=== PATIENT | female | born 1940 | race Caucasian/White ===

== ENCOUNTER 2018-04-22 13:57 | Outpatient (CLI) | payer MEDICARE ==
[~2018-04-22 13:57] MED LIST: Gadobenate Dimeglumine 529 MG/1 ML (20ML VIAL) ONE; Iopamidol 370 76% 100 ML VIAL ONE
--- NOTE | 2018-04-22 15:51 | CT ---
CT CHEST WITH IV CONTRAST CT ABDOMEN AND PELVIS WITH IV CONTRAST: DATE: 04/22/2018. HISTORY: Secondary malignant neoplasm of bone. The patient had abnormal bone scan and complains of back pain. COMPARISON: None available. FINDINGS: CT THORAX: There is a punctate pulmonary nodule within the right middle lobe which is nonspecific. No additiona l discrete pulmonary nodule or mass is seen and there is no pleural effusion identified. Vascular calcifications are seen in the coronary arteries and involving the thoracic aorta. There is no evidence of lymphadenopathy. There are postsurgical changes of the lower cervical and upper thor acic spine related to anterior as well as posterior cervical fusion. Degenerative changes are seen in the spine. No lytic or sclerotic osseous lesion is appreciated. CT ABDOMEN AND PELVIS: The left kidney is slightly atrophic in appearance compared to the right kidney with peripheral areas of scarring and lobulation. The right kidney has a normal CT appearance. There is a calcified granuloma in the right hepatic lobe. There are post-cholecystectomy changes pre sent with mild intra- and extrahepatic biliary ductal dilatation. The liver is otherwise normal in a ppearance. The spleen, pancreas, bilateral adrenal glands, and kidneys demonstrate a normal CT appearance. Opaci fied loops of small bowel are normal in caliber. A few scattered colonic diverticula are seen. The uterus is not visualized, likely related to prior hysterectomy. There is no free fluid, fluid collection, or lymphadenopathy seen in the abdomen or pelvis. Multilevel degenerative changes are seen throughout the spine as well as postsurgical changes present related to laminectomy defect with fusion at the lumbosacral junction. There is evidence of osteopenia. No suspicious lytic or sclerotic osseous lesions are appreciated. Injection granuloma are seen in the gluteal regions bilaterally. IMPRESSION: 1. No acute findings are seen in the chest, abdomen, or pelvis. 2. No Ct findings to suggest metastatic disease. 3. Multilevel degenerative changes in the spine with heterogeneity of the thoracic and lumbar verte bral bodies which is most likely related to bony demineralization and osteopenia as opposed to mottle d appearance due to multiple myeloma or metastatic disease. 4. Additional incidental findings are as described above. POS: SHAWNA
--- NOTE | 2018-04-22 17:09 | MRI ---
PRE AND POSTCONTRAST ENHANCED MRI IMAGES THORACIC SPINE 04/22/18 HISTORY: Secondary malignancy neoplasm of bone, localized back pain. Multiplanar and multisequence pre and postcontrast enhanced MRI images of the thoracic spine obtained . Images demonstrate extensive cervical and T1 cervical spine fusion. There is an interosseous hemangioma in the T3 vertebral body. There is some end plate edema and enhancement involving the inferior end plate of the T8 vertebral aleksandr dy likely disc degenerative change. There is an area of abnormal signal with enhancement in the inferior end plate of L1 extending into t he right L1-2 lumbar spinal canal with enhancement. Please also see accompanying dictation of the lum bar spine. I cannot exclude possibility of lumbar metastatic disease. There is marked right T8-9 neur al foraminal narrowing compressing the exiting right T8 nerve root. There is also some moderate to se briseida left T7-8 neural foraminal narrowing due to facet hypertrophy as well as disc encroachment into the left T7-8 neural foramen. IMPRESSION: Upper lumbar abnormal enhancement. Please see accompanying MRI dictation of the lumbar spine. POS: SHAWNA
--- NOTE | 2018-04-22 17:36 | MRI ---
MRI LUMBAR SPINE WITH AND WITHOUT CONTRAST: 04/22/18 HISTORY: Secondary malignant neoplasm of the bone. Localized back pain. Four previous back surgeries. COMPARISON: None. TECHNIQUE: MRI Of the lumbar spine is performed without intravenous gadolinium administration. Multisequential, multiplanar imaging is performed. FINDINGS: There is T1 marrow signal hypointensity with associated T2 and STIR hyperintensity involving L1 and L 2 compatible with type II Modic change. There is 4 mm of anterolisthesis of L3 upon L4 and 7 mm of an terolisthesis of L4 upon L5. There is no abnormal enhancement of the vertebral bodies. No abnormal enhancement within the thecal s ac including the cauda equina and conus medullaris. The conus medullaris terminates at the mid L1 level. T12-L1: Desiccation with moderate loss of disc space height. There is ligamentum flavum thickening an d facet hypertrophy. Moderate central canal stenosis. Moderate bilateral foraminal narrowing. L1-L2: Desiccation with moderate loss of disc space height. There are posterior laminectomy defects. Broad based disc bulge, facet hypertrophy results in moderate central canal stenosis. The central sup erior disc extrusion. Contrast images demonstrate enhancing scar tissue at the laminectomy defect sit e. There is a T2 hyperintense lesion with associated enhancement that is posterior and slightly to th e left of the thecal sac measuring 0.6 x 0.7 cm. Based on the images provided, the enhancement appear s to be predominantly peripheral suggesting a synovial cyst. There is severe right and left foraminal narrowing. L2-L3: Desiccation with severe loss of disc space height. Broad based disc bulge, ligamentum flavum t hickening and facet hypertrophy result in moderate central canal stenosis. Severe right and moderate to severe left foraminal narrowing. L3-L4: Desiccation with mild loss of disc space height. Generalized disc bulge, ligamentum flavum thi ckening, and facet hypertrophy result in moderate central canal stenosis. Laminectomy defect is sugge sted. There is bilateral facet hypertrophy. There is moderate right and mild to moderate left foramin al narrowing. L4-L5: Severe loss of disc space height. There are posterior laminectomy defects. There is a broad ba sed disc bulge that results in moderate central canal stenosis. There is enhancing scar tissue at the laminectomy defect site. There appears to be enhancing scar tissue in the right subarticular zone, p artially encompassing the traversing right L5 nerve root. Moderate right and severe left foraminal na rrowing. L5-S1: There is mild central canal stenosis. Moderate bilateral foraminal narrowing. IMPRESSION: 1. Postsurgical changes in the lumbar spine as above. There is significant central stenosis at L 4-L5, L3-L4, L2-3, and at L1-L2. 2. Synovial cyst causing mass effect upon the posterior aspect of the thecal sac at L1-L2. 3. Significant bilateral foraminal narrowing at L1-L2, left neural foramen at L4-L5, bilateral n eural foramina at L5-S1. POS: SHAWNA
== END 2018-04-22 13:58 | disposition home or self-care (01) ==
LOC: CT 13:57
PROVIDERS: ATTEND Internal Medicine Hematology & Oncology
DX: C79.51 Secondary malignant neoplasm of bone (principal); M47.894 Other spondylosis, thoracic region; M47.896 Other spondylosis, lumbar region; M99.83 Other biomechanical lesions of lumbar region; M48.061 Spinal stenosis, lumbar region without neurogenic claudication; M71.38 Other bursal cyst, other site; Z98.890 Other specified postprocedural states
CPT/HCPCS: 71260; 72157; 72158; 74177; A9579

== ENCOUNTER 2019-04-13 16:51 | Observation (INO) | payer MEDICARE ==
[2019-04-13 17:20] LABS: #Lymphocytes 1.1 thou/uL (1.20-3.40); #Monocytes 0.4 thou/uL (0.11-0.59); #Neutrophils 2.6 thou/uL (1.40-6.50); %Basophils 0.6 % (0.0-1.0); %Eosinophils 0.4 % (0.0-10.0); %Lymphocytes 27.2 % (21.0-51.0); %Monocytes 8.4 % (0.0-10.0); %Neutrophils 63.4 % (42.0-75.0); Hemoglobin 13.1 g/dL (12.0-16.0); Mean Corpuscular Hemoglobin 31.9 pg (27.0-31.0); Mean Corpuscular Volume 91.1 fL (78.0-98.0); Mean Platelet Volume 6.1 fL (7.4-10.4); Platelet Count 138 thou/uL (130-400); RBC Distribution Width 11.1 % (11.5-14.5); Red Blood Cell (RBC) Count 4.11 mill/uL (4.20-5.40); White Blood Cell (WBC) Count 4.2 thou/uL (4.8-10.8)
--- NOTE | 2019-04-13 17:35 | RAD ---
XR Chest 1 View Portable History: Chest pain Comparison: None. Findings: Lungs are clear. No pneumothorax or effusion. Cardiac silhouette and mediastinal contours a re within normal limits. No acute osseous abnormality. Advanced degenerative change left glenohumeral joint. Impression: No acute intrathoracic abnormality.
[2019-04-13 17:36] LABS: ALT (SGPT) 19 U/L (8-55); AST (SGOT) 36 U/L (5-34); Albumin 4.7 g/dL (3.4-4.8); Alkaline Phosphatase 60 U/L (40-110); Anion Gap 14 mmol/L (10-20); BUN (Urea Nitrogen) 12 mg/dL (9.8-20.1); Bilirubin, Total 0.5 mg/dL (0.2-1.2); CK (CPK) 426 U/L (29-168); Calc. Creatinine Clearance 0 mL/min (70-130); Calcium 9.7 mg/dL (7.8-10.44); Carbon Dioxide 27 mmol/L (23-31); Chloride 96 mmol/L (98-107); Estimated GFR-MDRD 52; Glucose 131 mg/dL (83-110); Lipase 40 U/L (8-78); Potassium 4.1 mmol/L (3.5-5.1); Protein, Total 7.7 g/dL (6.0-8.3); Sodium 133 mmol/L (136-145)
--- NOTE | 2019-04-13 17:41 | CT ---
CT Brain WO Con History: Altered mental status Comparison: CT brain 2017 Findings: No acute hemorrhage or infarct. No midline shift or mass effect. 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 Calvarium is intact. Paranasal sinuses and mastoids are clear.. The be implants of the temporal carrol bular joints bilaterally. Impression: Chronic findings. No acute intracranial abnormality.
[2019-04-13] MEDS ORDERED: Aspirin Chewable 81 MG TAB ONE (18:25)
[2019-04-13] MEDS ORDERED: HYDROcodone/Acetaminophen 10/325 mg Tablet ONE (20:07)
[2019-04-13 23:17] VITALS: BMI 22.4
[2019-04-14] MEDS ORDERED: diphenhydrAMINE 25 MG CAP PO PRN (00:31)
[2019-04-14] MEDS ORDERED: ALPRAZolam 0.5 MG TAB PO PRN (00:31)
[2019-04-14] MEDS ORDERED: tiZANidine HCl 4 MG TAB PO PRN (00:31)
--- NOTE | 2019-04-14 00:45 | PDOC.EVN ---
Event Note - Event Note Event Note: [id number] HP
--- NOTE | 2019-04-14 01:48 | HP ---
CHIEF COMPLAINT: Numbness and ? weakness of the right lower extremity. HISTORY OF PRESENT ILLNESS: Ms. Limon is a 78-year-old female with past medical history of hypertension, hyperlipidemia, thyroid disease, chronic back pain, and spinal surgery, presents to the emergency room with numbness and weakness of the right leg, she said that she usually ambulates at baseline, but she feels funny today and she cannot feel her right leg when she pinches her leg. Workup in the emergency room including CT of the brain, no acute findings. The patient is being admitted to the hospital for further management. PAST MEDICAL HISTORY: 1. Hyperlipidemia. 2. Hypertension. 3. Thyroid disease. 4. Diverticulitis. 5. Gastrointestinal disease. 6. Chronic back pain. PAST SURGICAL HISTORY: 1. Appendectomy. 2. Cholecystectomy. 3. Orthopedic surgery, back surgery/spine surgery, cervical. SOCIAL HISTORY: She drinks socially. No history of smoking. ALLERGIES: ALLERGIC TO ADHESIVES, MORPHINE, PENICILLIN. FAMILY HISTORY: Reviewed and noncontributory. HOME MEDICATIONS: Please see home medication reconciliation form for updated medications. REVIEW OF SYSTEMS: Review of 14 systems negative except what is mentioned in the history of present illness. PHYSICAL EXAMINATION: GENERAL: The patient is awake, alert, no acute distress. VITAL SIGNS: Blood pressure is 160/74, pulse is 67, respiratory rate 16, temperature 98.4. HEAD AND NECK: Normocephalic, atraumatic. NECK: Supple. No JVD. CHEST: Clear, bilateral air entry. HEART: S1, S2 regular. ABDOMEN: Soft, nontender. Bowel sounds present. NEUROLOGIC: Awake, alert, oriented x3. Subjective paresthesia to the left lower extremity. Normal range of motion. Normal strength. Speech is normal. Cranial nerves intact. SKIN: Unable to assess. IMAGING: EKG shows sinus rhythm with first-degree AV block. CT of the brain, no acute findings. ASSESSMENT AND PLAN: 1. Right lower extremity for a previous weakness? 2. Chronic back pain. 3. Hyperlipidemia. 4. Hypertension. 5. Diabetes, type 2. PLAN: 1. Admit. 2. Neuro checks. 3. Reassess in a.m. If the patient continues to have symptoms, may need further imaging studies including CT of the spine. As per the patient, she had metal in her body and she cannot get an MRI. 4. Consider PT/OT eval and treat, after the patient being reassessed in the morning by the daytime physician. 5. Consider Neurosurgery consultation, if the patient's symptoms persist. 6. Reconcile home medications. 7. DVT prophylaxis, early ambulation. 8. Expected length of stay is 1 midnight, if patient is stable and further workup negative. Job ID: [id number]
[2019-04-14] MEDS ORDERED: Levothyroxine Sodium 75 MCG TAB PO SCH (06:00)
[2019-04-14] MEDS: HYDROcodone/Acetaminophen 10/325 mg Tablet PO PRN ×2 (07:28→13:38)
[2019-04-14] MEDS ORDERED: metFORMIN 500 MG TAB PO SCH (08:00)
[2019-04-14] MEDS ORDERED: Rosuvastatin 10 MG TAB PO SCH (09:00)
[2019-04-14] MEDS ORDERED: Polyethylene Glycol 3350 17 GM Packet PO SCH (09:00)
[2019-04-14] MEDS ORDERED: Lisinopril 10 MG TAB PO SCH (09:00)
[2019-04-14] MEDS ORDERED: FLU VACC TS2019-20(65YR UP)/PF 180 MCG/0.5 ML SYRINGE IM ONE (09:00)
[2019-04-14] MEDS ORDERED: Dextrose 50% Abboject 50 ML SYRINGE SLOW IVP PRN (09:13)
[2019-04-14] MEDS ORDERED: Dextrose 5% in Water 1,000 ML IV PRN (09:13)
[2019-04-14] MEDS ORDERED: Insulin Regular 300 UNITS/3 ML VIAL SC PRN ×2 (09:13)
--- NOTE | 2019-04-14 10:39 | MRI ---
MRI BRAIN NONCONTRAST: DATE: 04/14/2019 HISTORY: 78-year-old female with CVA FINDINGS: Magnetic susceptibility blowout artifact arising from ferromagnetic implants at the bilateral TMJs, o bscuring portions of the bilateral temporal lobes. There is no obstructive hydrocephalus. There is no midline shift or any other evidence of mass effect. There is no extra-axial fluid collection. Ther e are mild chronic ischemic white matter changes due to microvascular atherosclerosis. There is a small old lacunar infarction in the upper portion of the right basal ganglia extending into the adjac ent right chowdary radiata. On the previous MRI of 12/02/2016, there was a tiny old lacunar infarction in the right basal ganglia, but the current one is slightly larger, abuts the anterior surface of the older one, and has greater superior extent. There is otherwise no major intra-axial signal abnormality, recent hemorrhage, or restricted diffusion. IMPRESSION: 1) mild chronic ischemic white matter changes. 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 3) status post bilateral temporomandibular joint arthroplasty. 4) otherwise negative
[2019-04-14 11:52] LABS: Anion Gap 10 mmol/L (10-20); BUN (Urea Nitrogen) 11 mg/dL (9.8-20.1); CK (CPK) 261 U/L (29-168); Calc. Creatinine Clearance 42 mL/min (70-130); Calcium 9.4 mg/dL (7.8-10.44); Carbon Dioxide 26 mmol/L (23-31); Chloride 94 mmol/L (98-107); Estimated GFR-MDRD 54; Glucose 166 mg/dL (83-110); Potassium 4.3 mmol/L (3.5-5.1); Sodium 126 mmol/L (136-145)
[2019-04-14 15:35] LABS: Anion Gap 12 mmol/L (10-20); BUN (Urea Nitrogen) 12 mg/dL (9.8-20.1); Calc. Creatinine Clearance 36 mL/min (70-130); Calcium 9.4 mg/dL (7.8-10.44); Carbon Dioxide 26 mmol/L (23-31); Chloride 94 mmol/L (98-107); Estimated GFR-MDRD 44; Glucose 114 mg/dL (83-110); Potassium 4.6 mmol/L (3.5-5.1); Sodium 127 mmol/L (136-145)
[2019-04-14 16:02] VITALS: BP 185/85; TEMP 98.2
[2019-04-14] MEDS ORDERED: Enoxaparin Sodium 40 MG/0.4 ML SYRINGE SC SCH (21:00)
--- NOTE | 2019-04-14 23:43 | DIS ---
DATE OF ADMISSION: 04/13/2019 DATE OF DISCHARGE: 04/14/2019 DISCHARGE DISPOSITION: Home. FOLLOWUP: 1. Follow up with primary care physician, Dr. Parker in 1 week. 2. Follow up with Nephrology as outpatient. A repeat electrolyte check after 2 to 3 days is recommended. Primary care physician advised to follow. DISCHARGE INSTRUCTIONS: A 1200 mL fluid restriction was emphasized. CODE STATUS: Full code. Patient makes her own decision with the help of her family. DISCHARGE MEDICATIONS: Aspirin 81 mg daily. All other home medications were left unchanged. DIAGNOSTIC TESTS: MRI of the brain was negative for acute CVA. It showed mild chronic ischemic white matter changes with two small old lacunar infarctions of the right corpus striatum. Chest x-ray was negative for infiltrate. BRIEF HOSPITAL COURSE: Patient is a 78-year-old female with hypertension and hyperlipidemia, presented to the hospital with numbness and questionable weakness in the right lower extremity. Please refer to the history and physical by Dr. Staton for further details. The patient was admitted to the hospital with a diagnosis of suspected transient ischemic attack versus acute CVA. She underwent an MRI that was negative for acute CVA. She has been started on low-dose aspirin. Patient had a sodium of 123 on admission. Repeat sodium this morning was 126. Four hours later, the sodium was 127. Urine studies showed urine osmolality of 431 with urine sodium of 73. 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 Patient was advised to restrict fluid intake to 1200 mL a day. She was advised to get a repeat electrolyte check in 2 days. Echocardiogram could not be done during this hospital stay. Patient requested to be discharged. She will benefit from an echocardiogram as outpatient. FINAL DIAGNOSIS: 1. Suspected transient ischemic attack, causing right lower extremity weakness. Other possibility causing weakness could be lumbar degenerative joint disease. 2. 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 3. Hypertension. 4. Chronic low back pain. 5. Hyperlipidemia. 6. Hypothyroidism. 7. Diabetes mellitus, type 2. 8. Chronic kidney disease, stage 3. 9. Elevated CK of 426 on admission. Repeat CK was 261. 10. Diagnostic tests. Vitamin B12 is 511. 11. Folic acid 14.2. 12. TSH was normal. PLAN: Plan of care was discussed with the patient in detail. She stated understanding. Job ID: [id number]
[2019-04-15] MEDS ORDERED: Aspirin 325 mg Enteric Coated Tablet PO SCH (09:00)
== END 2019-04-14 17:45 | disposition home or self-care (01) ==
LOC: SCSER 16:51 → 2SE 22:25
PROVIDERS: ADMIT Internal Medicine; ATTEND Internal Medicine
DX: R20.0 Anesthesia of skin (principal); I12.9 Hypertensive chronic kidney disease with stage 1 through stage 4 chronic kidney disease, or unspecified chronic kidney disease; E11.22 Type 2 diabetes mellitus with diabetic chronic kidney disease; N18.3 Chronic kidney disease, stage 3 (moderate); E03.9 Hypothyroidism, unspecified; E78.5 Hyperlipidemia, unspecified; E87.1 Hypo-osmolality and hyponatremia; G89.29 Other chronic pain; M54.5 Low back pain; Z79.84 Long term (current) use of oral hypoglycemic drugs; Z79.899 Other long term (current) drug therapy; Z88.0 Allergy status to penicillin; Z88.5 Allergy status to narcotic agent; Z91.048 Other nonmedicinal substance allergy status
CPT/HCPCS: 36415; 36416; 70450; 70551; 71045; 80048; 80053; 82550; 82607; 82746; 83690; 83930; 83935; 84300; 84443; 84484; 85025; 93005; G0378

== ENCOUNTER 2019-05-22 13:55 | Outpatient (CLI) | payer MEDICARE ==
--- NOTE | 2019-05-22 15:19 | MRI ---
MRI cervical spine noncontrast: DATE: 05/22/2019 HISTORY: 78-year-old female with cervical spinal stenosis and extremely cervicalgia. COMPARISON: 10/30/2013 FINDINGS: Again demonstrated are anterior metallic plate from C4 through C7, attached to bone by anterior screw s at C4, C5, and C7. Partial corpectomy of C6 vertebral body partially replaced by vertical fibular strut. (for detailed evaluation of the metallic hardware, noncontrast CT would be recommended). In addition to this pre-existing hardware, there has been interval placement of bilateral posterior e lement screws with vertical interlocking rods at C4, C5, C6, C7, and T1. Furthermore, there has been interval wide, decompressive laminectomy from C4-5 through C6-7, relieving the previously demons trated severe central spinal canal stenosis. Cervical spinal cord is normal in size and signal. C1-2: Degenerative pseudopannus posterior to odontoid process encroaches upon craniocervical junction , causing moderate central spinal canal stenosis. C2-3: No central or neural foraminal stenosis. C3-4: No central stenosis or high-grade neural foraminal stenosis. C4-5: No high-grade central stenosis or neural foraminal stenosis. C5-6: Generous caliber spinal canal. No neural foraminal stenosis. C6-7: Generous caliber spinal canal. No neural foraminal stenosis. C7-T1: No central stenosis. Mild bilateral neural foraminal stenosis. IMPRESSION: 1. No central spinal canal stenosis, high-grade neural foraminal stenosis, or cord impingement, at an y level. 2. Status post anterior cervical discectomy, corpectomy, and fusion, at C4-5-6-7. 3. Posterior element fusion hardware at C4-5-6-7-T1. 4. Status post decompressive laminectomy at C4-5, C5-6, and C6-7.
--- NOTE | 2019-05-22 16:27 | RAD ---
THREE VIEWS CERVICAL SPINE: Indication: Radiculopathy to the cervical region. Comparison: Prior exam, 06-07-15. FINDINGS: The 360 degrees fusion spanning C4 through T1 is stable. The instrumentation involving the mandible a ppears similar appearing. Spinal alignment is unchanged. Mild disc degenerative disease at C2-3 and C 3-4 is similar appearing. Facet osteoarthritic change is similar appearing. No definite abnormal sharp slational motion is evident. Vertebral soft tissues are within normal limits. IMPRESSION: Stable post-operative cervical spine with no abnormal translation and stable degenerative spondylolis thesis. POS: C
== END 2019-05-22 13:56 | disposition home or self-care (01) ==
LOC: SCSMRI 13:55
PROVIDERS: ATTEND Nurse Practitioner Family
DX: M54.12 Radiculopathy, cervical region (principal); M43.12 Spondylolisthesis, cervical region; Z98.1 Arthrodesis status
CPT/HCPCS: 72040; 72141

== ENCOUNTER 2020-09-06 10:05 | Outpatient (CLI) | payer MEDICARE | END 2020-09-06 10:06 | disposition home or self-care (01) | LOC: SCSRAD 10:05 | PROVIDERS: ATTEND Surgery | DX: S32.009A Unspecified fracture of unspecified lumbar vertebra, initial encounter for closed fracture (principal); M47.814 Spondylosis without myelopathy or radiculopathy, thoracic region | CPT/HCPCS: 72100 ==

== ENCOUNTER 2020-10-03 08:51 | Outpatient (CLI) | payer MEDICARE | END 2020-10-03 08:52 | disposition home or self-care (01) | LOC: SCSLAB 08:51 → SCSRAD 08:52 | PROVIDERS: ATTEND Surgery | DX: S32.009A Unspecified fracture of unspecified lumbar vertebra, initial encounter for closed fracture (principal) | CPT/HCPCS: 72100 ==

== ENCOUNTER 2020-10-16 08:56 | Outpatient (CLI) | payer MEDICARE | END 2020-10-16 08:57 | disposition home or self-care (01) | LOC: SCSRAD 08:56 | PROVIDERS: ATTEND Surgery | DX: S32.009A Unspecified fracture of unspecified lumbar vertebra, initial encounter for closed fracture (principal); W19.XXXA Unspecified fall, initial encounter | CPT/HCPCS: 72100 ==

== ENCOUNTER 2020-10-25 14:10 | Inpatient (IN) | payer MEDICARE ==
[2020-10-25] MEDS ORDERED: Heparin 1,000 UNITS/ML VIAL ONE (14:40)
[2020-10-25 15:35] LABS: #Lymphocytes 0.8 thou/uL (1.20-3.40); #Monocytes 0.5 thou/uL (0.11-0.59); #Neutrophils 5.5 thou/uL (1.40-6.50); %Eosinophils 0.2 % (0.0-10.0); %Lymphocytes 12.2 % (21.0-51.0); %Monocytes 7.1 % (0.0-10.0); %Neutrophils 80.6 % (42.0-75.0); Hemoglobin 9.2 g/dL (12.0-16.0); Mean Corpuscular HGB CONC 34.6 g/dL (32.0-36.0); Mean Corpuscular Hemoglobin 30.7 pg (27.0-31.0); Mean Corpuscular Volume 88.9 fL (78.0-98.0); Mean Platelet Volume 5.4 fL (7.4-10.4); Platelet Count 276 thou/uL (130-400); RBC Distribution Width 13.4 % (11.5-14.5); Red Blood Cell (RBC) Count 2.98 mill/uL (4.20-5.40); White Blood Cell (WBC) Count 6.8 thou/uL (4.8-10.8)
[2020-10-25 15:59] LABS: ALT (SGPT) Less than 7 U/L (8-55); AST (SGOT) 15 U/L (5-34); Albumin 3.8 g/dL (3.4-4.8); Alkaline Phosphatase 98 U/L (40-110); Anion Gap 14 mmol/L (10-20); BUN (Urea Nitrogen) 10 mg/dL (9.8-20.1); Bilirubin, Total 0.5 mg/dL (0.2-1.2); Calc. Creatinine Clearance 0 mL/min (70-130); Calcium 9.7 mg/dL (7.8-10.44); Carbon Dioxide 25 mmol/L (23-31); Chloride 89 mmol/L (98-107); Globulin 3.9 g/dL (2.4-3.5); Glucose 161 mg/dL (83-110); Potassium 4.3 mmol/L (3.5-5.1); Protein, Total 7.7 g/dL (5.8-8.1); Sodium 124 mmol/L (136-145)
[2020-10-25] MEDS ORDERED: Cefepime 2 GM VIAL ONE (16:25)
[2020-10-25] MEDS ORDERED: Vancomycin 1 GM/200 ML BAG ONE (16:26)
[2020-10-25] MEDS ORDERED: Morphine 4 MG/ML VIAL ONE ×2 (16:26→17:20)
[2020-10-25] MEDS ORDERED: Ketorolac Tromethamine 30 MG/ML VIAL ONE (16:26)
[2020-10-25] MEDS ORDERED: Acetaminophen 325 MG TAB PO PRN (17:54)
[2020-10-25] MEDS ORDERED: Ondansetron ODT 4 MG TAB PO PRN (17:54)
[2020-10-25] MEDS ORDERED: Senokot S 8.6-50 MG TAB PO PRN (17:54)
[2020-10-25] MEDS ORDERED: Ondansetron PF 4 MG/2 ML Vial IVP PRN (17:54)
[2020-10-25] MEDS ORDERED: Sodium Chloride 0.9% 1,000 ML IV SCH (18:00)
[2020-10-25] MEDS ORDERED: Dextrose 50% Abboject 50 ML SYRINGE SLOW IVP PRN (18:01)
[2020-10-25] MEDS ORDERED: HumaLOG 300 UNITS/3 ML VIAL SC PRN ×2 (18:01)
[2020-10-25] MEDS ORDERED: Dextrose 5% in Water 1,000 ML IV PRN (18:01)
[2020-10-25 19:51] VITALS: BMI 21.9
[2020-10-25] MEDS: Famotidine/PF 20 mg/2ml Vial SLOW IVP SCH (19:57)
[2020-10-25] MEDS: HYDROcodone/Acetaminophen 10/325 mg Tablet PO SCH (20:18)
[2020-10-25] MEDS: Famotidine 20 MG TAB PO SCH (20:19)
[2020-10-25 22:42] LABS: Anion Gap 11 mmol/L (10-20); BUN (Urea Nitrogen) 9 mg/dL (9.8-20.1); Calc. Creatinine Clearance 45 mL/min (70-130); Carbon Dioxide 28 mmol/L (23-31); Chloride 90 mmol/L (98-107); Glucose 167 mg/dL (83-110); Potassium 4.1 mmol/L (3.5-5.1); Sodium 125 mmol/L (136-145)
[2020-10-26] MEDS: HYDROcodone/Acetaminophen 10/325 mg Tablet PO SCH ×6 (00:29→20:38)
[2020-10-26] MEDS: tiZANidine HCl 4 MG TAB PO PRN ×2 (00:29→18:21)
[2020-10-26 03:30] LABS: SARS-CoV-2 PCR by NAA Not Detected (NotDetected)
[2020-10-26] MEDS: Cefepime 2 GM in Sodium Chloride 0.9% 100 ML IVPB SCH ×2 (05:06→16:52)
[2020-10-26 06:19] LABS: #Monocytes 0.4 thou/uL (0.11-0.59); #Neutrophils 2.7 thou/uL (1.40-6.50); %Basophils 0.3 % (0.0-1.0); %Eosinophils 0.6 % (0.0-10.0); %Lymphocytes 24.5 % (21.0-51.0); %Neutrophils 64.5 % (42.0-75.0); Hemoglobin 8.4 g/dL (12.0-16.0); Mean Corpuscular HGB CONC 32.9 g/dL (32.0-36.0); Mean Corpuscular Hemoglobin 29.5 pg (27.0-31.0); Mean Corpuscular Volume 89.4 fL (78.0-98.0); Mean Platelet Volume 5.1 fL (7.4-10.4); Platelet Count 235 thou/uL (130-400); RBC Distribution Width 13.5 % (11.5-14.5); Red Blood Cell (RBC) Count 2.86 mill/uL (4.20-5.40); White Blood Cell (WBC) Count 4.1 thou/uL (4.8-10.8)
[2020-10-26 06:43] LABS: Iron 38 ug/dL (50-170); Iron Binding Capacity, Total 228 mcg/dL (265-497)
[2020-10-26 06:44] LABS: Anion Gap 13 mmol/L (10-20); BUN (Urea Nitrogen) 10 mg/dL (9.8-20.1); Calc. Creatinine Clearance 45 mL/min (70-130); Calcium 8.9 mg/dL (7.8-10.44); Carbon Dioxide 23 mmol/L (23-31); Chloride 92 mmol/L (98-107); Glucose 113 mg/dL (83-110); Iron 37 ug/dL (50-170); Iron Binding Capacity, Total 229 mcg/dL (265-497); Potassium 4.2 mmol/L (3.5-5.1); Sodium 124 mmol/L (136-145)
[2020-10-26] MEDS: Famotidine 20 MG TAB PO SCH ×2 (07:59→20:38)
[2020-10-26] MEDS: Lisinopril 10 MG TAB PO SCH (07:59)
[2020-10-26] MEDS: Polyethylene Glycol 3350 17 GM Packet PO SCH (08:01)
[2020-10-26] MEDS: Famotidine/PF 20 mg/2ml Vial SLOW IVP SCH ×2 (08:01→20:40)
[2020-10-26 10:53] LABS: Bacteria/HPF None Seen HPF (None Seen); Bilirubin Negative (Negative); Blood, Urine Negative (Negative); Clarity Clear (Clear); Glucose, Urine (Dipstick) Normal (Negative); Ketone, Urine Negative (Negative); Leukocyte Negative Leu/uL (Negative); Nitrite Negative (Negative); Protein, Urine (Dipstick) Negative (Neg-Trace); RBC/HPF 0-3 HPF (0-3); Specific Gravity, Urine 1.007 (1.002-1.036); Squamous Epithelial 0-3 HPF (0-3); Urobilinogen Normal mg/dL (Less than 2); WBC/HPF 0-3 HPF (0-3); pH, Urine 6.5 (5.0-9.0)
[2020-10-26] MEDS: Lidocaine 5% Patch TD SCH (13:11)
[2020-10-26] MEDS ORDERED: hydrALAZINE 20 MG/ML VIAL SLOW IVP PRN (15:45)
[2020-10-26] MEDS: ALPRAZolam 0.5 MG TAB PO PRN ×2 (16:58→23:28)
[2020-10-26] MEDS: Vancomycin HCl 750 MG in Sodium Chloride 0.9% 250 ML 250 ML IVPB SCH (18:12)
[2020-10-27] MEDS: HYDROcodone/Acetaminophen 10/325 mg Tablet PO SCH ×6 (00:42→20:23)
[2020-10-27] MEDS: Transdermal Patch Removal TOP SCH (00:50)
[2020-10-27] MEDS: Levothyroxine Sodium 75 MCG TAB PO SCH (04:29)
[2020-10-27] MEDS: Cefepime 2 GM in Sodium Chloride 0.9% 100 ML IVPB SCH ×2 (04:33→16:55)
[2020-10-27 06:04] LABS: #Monocytes 0.3 thou/uL (0.11-0.59); #Neutrophils 2.6 thou/uL (1.40-6.50); %Basophils 0.2 % (0.0-1.0); %Eosinophils 0.2 % (0.0-10.0); %Lymphocytes 25.5 % (21.0-51.0); %Monocytes 7.9 % (0.0-10.0); %Neutrophils 66.2 % (42.0-75.0); Hemoglobin 8.4 g/dL (12.0-16.0); Mean Corpuscular HGB CONC 33.7 g/dL (32.0-36.0); Mean Corpuscular Hemoglobin 30.2 pg (27.0-31.0); Mean Corpuscular Volume 89.6 fL (78.0-98.0); Mean Platelet Volume 5.4 fL (7.4-10.4); Platelet Count 245 thou/uL (130-400); RBC Distribution Width 13.6 % (11.5-14.5); Red Blood Cell (RBC) Count 2.79 mill/uL (4.20-5.40)
[2020-10-27 06:20] LABS: Anion Gap 12 mmol/L (10-20); BUN (Urea Nitrogen) 9 mg/dL (9.8-20.1); CRP (Inflammatory) 2.15 mg/dL (= or < 0.5); Calc. Creatinine Clearance 44 mL/min (70-130); Calcium 8.7 mg/dL (7.8-10.44); Carbon Dioxide 26 mmol/L (23-31); Chloride 93 mmol/L (98-107); Glucose 117 mg/dL (83-110); Potassium 4.2 mmol/L (3.5-5.1); Sodium 127 mmol/L (136-145)
[2020-10-27] MEDS: Aspirin 81 mg Enteric Coated Tablet PO SCH (08:31)
[2020-10-27] MEDS: Famotidine 20 MG TAB PO SCH ×2 (08:31→20:21)
[2020-10-27] MEDS: Rosuvastatin 10 MG TAB PO SCH (08:31)
[2020-10-27] MEDS: Lisinopril 10 MG TAB PO SCH (08:32)
[2020-10-27] MEDS: Polyethylene Glycol 3350 17 GM Packet PO SCH (08:32)
[2020-10-27] MEDS: Famotidine/PF 20 mg/2ml Vial SLOW IVP SCH (08:32)
[2020-10-27] MEDS: Lidocaine 5% Patch TD SCH (13:08)
[2020-10-27] MEDS: ALPRAZolam 0.5 MG TAB PO PRN (13:12)
[2020-10-27] MEDS: Vancomycin HCl 750 MG in Sodium Chloride 0.9% 250 ML 250 ML IVPB SCH (16:58)
[2020-10-27 17:38] LABS: Vancomycin, Trough 7.5 ug/mL
[2020-10-27] MEDS: Gabapentin 300 MG CAP PO SCH (20:22)
[2020-10-28] MEDS: ALPRAZolam 0.5 MG TAB PO PRN ×2 (00:50→19:20)
[2020-10-28] MEDS: HYDROcodone/Acetaminophen 10/325 mg Tablet PO SCH ×6 (01:00→21:48)
[2020-10-28] MEDS: Transdermal Patch Removal TOP SCH (01:00)
[2020-10-28] MEDS: Levothyroxine Sodium 75 MCG TAB PO SCH (05:15)
[2020-10-28] MEDS: Cefepime 2 GM in Sodium Chloride 0.9% 100 ML IVPB SCH ×2 (05:19→16:58)
[2020-10-28 06:31] LABS: Anion Gap 12 mmol/L (10-20); BUN (Urea Nitrogen) 11 mg/dL (9.8-20.1); CRP (Inflammatory) 1.36 mg/dL (= or < 0.5); Calc. Creatinine Clearance 50 mL/min (70-130); Calcium 9.1 mg/dL (7.8-10.44); Carbon Dioxide 25 mmol/L (23-31); Chloride 96 mmol/L (98-107); Glucose 122 mg/dL (83-110); Sodium 129 mmol/L (136-145)
[2020-10-28] MEDS: Vancomycin HCl 750 MG in Sodium Chloride 0.9% 250 ML 250 ML IVPB SCH ×2 (06:54→19:19)
[2020-10-28] MEDS: Rosuvastatin 10 MG TAB PO SCH (08:46)
[2020-10-28] MEDS: Famotidine 20 MG TAB PO SCH ×2 (08:46→20:34)
[2020-10-28] MEDS: Aspirin 81 mg Enteric Coated Tablet PO SCH (08:46)
[2020-10-28] MEDS: Gabapentin 300 MG CAP PO SCH ×2 (08:47→20:34)
[2020-10-28] MEDS: Lisinopril 10 MG TAB PO SCH (08:48)
[2020-10-28] MEDS: Polyethylene Glycol 3350 17 GM Packet PO SCH (08:48)
[2020-10-28] MEDS: Lidocaine 5% Patch TD SCH (12:39)
[2020-10-28] MEDS ORDERED: Sodium Chloride 0.9% 500 ML IV SCH (15:15)
[2020-10-28] MEDS: Bisacodyl 5 MG TAB PO PRN (19:19)
[2020-10-28] MEDS: Lisinopril 20 MG TAB PO SCH (20:34)
[2020-10-29] MEDS: ALPRAZolam 0.5 MG TAB PO PRN ×2 (00:20→14:16)
[2020-10-29] MEDS: Transdermal Patch Removal TOP SCH (00:21)
[2020-10-29] MEDS: HYDROcodone/Acetaminophen 10/325 mg Tablet PO SCH ×7 (01:30→20:28)
[2020-10-29] MEDS: Levothyroxine Sodium 75 MCG TAB PO SCH (05:20)
[2020-10-29] MEDS: Cefepime 2 GM in Sodium Chloride 0.9% 100 ML IVPB SCH ×2 (05:24→16:48)
[2020-10-29 06:37] LABS: Vancomycin, Trough 15.5 ug/mL
[2020-10-29 06:40] LABS: Anion Gap 12 mmol/L (10-20); BUN (Urea Nitrogen) 12 mg/dL (9.8-20.1); Calc. Creatinine Clearance 51 mL/min (70-130); Calcium 9.2 mg/dL (7.8-10.44); Carbon Dioxide 24 mmol/L (23-31); Chloride 99 mmol/L (98-107); Glucose 116 mg/dL (83-110); Potassium 4.1 mmol/L (3.5-5.1); Sodium 131 mmol/L (136-145)
[2020-10-29] MEDS: Vancomycin HCl 750 MG in Sodium Chloride 0.9% 250 ML 250 ML IVPB SCH ×2 (06:41→18:16)
[2020-10-29] MEDS: Famotidine 20 MG TAB PO SCH ×2 (08:20→20:27)
[2020-10-29] MEDS: Lisinopril 20 MG TAB PO SCH ×2 (08:20→20:27)
[2020-10-29] MEDS: Aspirin 81 mg Enteric Coated Tablet PO SCH (08:20)
[2020-10-29] MEDS: Rosuvastatin 10 MG TAB PO SCH (08:20)
[2020-10-29] MEDS: Gabapentin 300 MG CAP PO SCH ×2 (08:21→22:30)
[2020-10-29] MEDS: Polyethylene Glycol 3350 17 GM Packet PO SCH (08:22)
[2020-10-29] MEDS ORDERED: HYDROcodone/Acetaminophen 10/325 mg Tablet ONE (12:29)
[2020-10-29] MEDS: Lidocaine 5% Patch TD SCH ×2 (13:10→13:52)
[2020-10-29] MEDS: Bisacodyl 5 MG TAB PO PRN (16:48)
[2020-10-29] MEDS ORDERED: Amlodipine 5 MG TAB PO SCH (18:30)
[2020-10-29] MEDS: tiZANidine HCl 4 MG TAB PO PRN (22:30)
[2020-10-30] MEDS: ALPRAZolam 0.5 MG TAB PO PRN ×3 (00:20→23:05)
[2020-10-30] MEDS: Transdermal Patch Removal TOP SCH (00:26)
[2020-10-30] MEDS: HYDROcodone/Acetaminophen 10/325 mg Tablet PO SCH ×7 (01:57→21:13)
[2020-10-30] MEDS: Cefepime 2 GM in Sodium Chloride 0.9% 100 ML IVPB SCH ×2 (04:55→16:31)
[2020-10-30] MEDS: Levothyroxine Sodium 75 MCG TAB PO SCH (05:01)
[2020-10-30] MEDS: Vancomycin HCl 750 MG in Sodium Chloride 0.9% 250 ML 250 ML IVPB SCH ×2 (06:34→17:57)
[2020-10-30] MEDS: Polyethylene Glycol 3350 17 GM Packet PO SCH (08:10)
[2020-10-30] MEDS: Amlodipine 5 MG TAB PO SCH (08:12)
[2020-10-30] MEDS: Famotidine 20 MG TAB PO SCH ×2 (08:13→21:12)
[2020-10-30] MEDS: Lisinopril 20 MG TAB PO SCH ×2 (08:13→21:13)
[2020-10-30] MEDS: Gabapentin 300 MG CAP PO SCH ×2 (08:14→21:12)
[2020-10-30] MEDS: Rosuvastatin 10 MG TAB PO SCH (08:15)
[2020-10-30] MEDS: Aspirin 81 mg Enteric Coated Tablet PO SCH (08:19)
[2020-10-30] MEDS: Bisacodyl 10 MG SUPP PR SCH ×2 (10:18→15:07)
[2020-10-30] MEDS: Magnesium Citrate 300 ML BOT PO SCH ×2 (10:18→12:19)
[2020-10-30] MEDS: Lidocaine 5% Patch TD SCH (12:28)
[2020-10-30] MEDS: Lactinex Tablet PO SCH (21:12)
[2020-10-30] MEDS: tiZANidine HCl 4 MG TAB PO PRN (23:05)
[2020-10-31] MEDS: HYDROcodone/Acetaminophen 10/325 mg Tablet PO SCH ×6 (00:54→20:38)
[2020-10-31] MEDS: Transdermal Patch Removal TOP SCH (00:56)
[2020-10-31] MEDS: Cefepime 2 GM in Sodium Chloride 0.9% 100 ML IVPB SCH ×2 (04:24→16:36)
[2020-10-31] MEDS: Vancomycin HCl 750 MG in Sodium Chloride 0.9% 250 ML 250 ML IVPB SCH ×2 (05:07→18:18)
[2020-10-31] MEDS: Levothyroxine Sodium 75 MCG TAB PO SCH (05:07)
[2020-10-31] MEDS: Famotidine 20 MG TAB PO SCH ×2 (08:33→20:36)
[2020-10-31] MEDS: Lactinex Tablet PO SCH ×2 (08:33→20:36)
[2020-10-31] MEDS: Amlodipine 5 MG TAB PO SCH (08:33)
[2020-10-31] MEDS: Aspirin 81 mg Enteric Coated Tablet PO SCH (08:33)
[2020-10-31] MEDS: Rosuvastatin 10 MG TAB PO SCH (08:33)
[2020-10-31] MEDS: tiZANidine HCl 4 MG TAB PO PRN ×2 (08:34→21:40)
[2020-10-31] MEDS: Gabapentin 300 MG CAP PO SCH ×2 (08:34→20:37)
[2020-10-31] MEDS: Lisinopril 20 MG TAB PO SCH ×2 (08:35→20:37)
[2020-10-31] MEDS: Polyethylene Glycol 3350 17 GM Packet PO SCH (08:36)
[2020-10-31] MEDS: Lidocaine 5% Patch TD SCH (12:49)
[2020-10-31] MEDS: ALPRAZolam 0.5 MG TAB PO PRN (21:40)
[2020-10-31] MEDS: cloNIDine 0.1 MG TAB PO PRN (21:40)
[2020-11-01] MEDS: HYDROcodone/Acetaminophen 10/325 mg Tablet PO SCH ×6 (01:17→20:52)
[2020-11-01] MEDS: Transdermal Patch Removal TOP SCH (01:17)
[2020-11-01] MEDS: Cefepime 2 GM in Sodium Chloride 0.9% 100 ML IVPB SCH ×2 (04:36→17:01)
[2020-11-01] MEDS: Levothyroxine Sodium 75 MCG TAB PO SCH (05:40)
[2020-11-01] MEDS: Vancomycin HCl 750 MG in Sodium Chloride 0.9% 250 ML 250 ML IVPB SCH ×2 (05:40→18:14)
[2020-11-01] MEDS: tiZANidine HCl 4 MG TAB PO PRN ×2 (05:43→22:43)
[2020-11-01] MEDS: Lisinopril 20 MG TAB PO SCH ×2 (08:46→20:54)
[2020-11-01] MEDS: Amlodipine 5 MG TAB PO SCH (08:46)
[2020-11-01] MEDS: Famotidine 20 MG TAB PO SCH ×2 (08:46→20:52)
[2020-11-01] MEDS: Rosuvastatin 10 MG TAB PO SCH (08:47)
[2020-11-01] MEDS: Lactinex Tablet PO SCH ×2 (08:47→20:54)
[2020-11-01] MEDS: Aspirin 81 mg Enteric Coated Tablet PO SCH (08:48)
[2020-11-01] MEDS: Gabapentin 300 MG CAP PO SCH ×2 (08:48→20:52)
[2020-11-01] MEDS: Polyethylene Glycol 3350 17 GM Packet PO SCH (08:54)
[2020-11-01] MEDS: Lidocaine 5% Patch TD SCH (12:52)
[2020-11-01] MEDS: ALPRAZolam 0.5 MG TAB PO PRN ×2 (13:58→22:43)
[2020-11-01] MEDS: cloNIDine 0.1 MG TAB PO PRN (17:01)
[2020-11-01 17:34] LABS: Vancomycin, Trough 22.5 ug/mL
[2020-11-02] MEDS: HYDROcodone/Acetaminophen 10/325 mg Tablet PO SCH ×4 (00:54→12:18)
[2020-11-02] MEDS: Transdermal Patch Removal TOP SCH (00:55)
[2020-11-02] MEDS: Cefepime 2 GM in Sodium Chloride 0.9% 100 ML IVPB SCH (04:33)
[2020-11-02] MEDS: Levothyroxine Sodium 75 MCG TAB PO SCH (05:16)
[2020-11-02] MEDS: Vancomycin HCl 750 MG in Sodium Chloride 0.9% 250 ML 250 ML IVPB SCH (05:17)
[2020-11-02] MEDS: Lactinex Tablet PO SCH (08:58)
[2020-11-02] MEDS: Rosuvastatin 10 MG TAB PO SCH (08:58)
[2020-11-02] MEDS: Polyethylene Glycol 3350 17 GM Packet PO SCH (08:58)
[2020-11-02] MEDS: Aspirin 81 mg Enteric Coated Tablet PO SCH (08:58)
[2020-11-02] MEDS: Lisinopril 20 MG TAB PO SCH (08:58)
[2020-11-02] MEDS: Gabapentin 300 MG CAP PO SCH (08:58)
[2020-11-02] MEDS: Amlodipine 5 MG TAB PO SCH (08:59)
[2020-11-02] MEDS: Famotidine 20 MG TAB PO SCH (08:59)
[2020-11-02] MEDS: ALPRAZolam 0.5 MG TAB PO PRN (11:51)
[2020-11-02] MEDS: cloNIDine 0.1 MG TAB PO PRN (12:18)
[2020-11-02] MEDS: Lidocaine 5% Patch TD SCH (12:19)
[2020-11-02 13:18] VITALS: BP 163/73; TEMP 97.7
== END 2020-11-02 13:11 | DRG 552 ==
LOC: ERS 14:10 → T4-A 17:11
PROVIDERS: ADMIT Internal Medicine; ATTEND Family Medicine
PROC: 02HV33Z Insertion of Infusion Device into Superior Vena Cava, Percutaneous Approach (ICD-10-PCS; principal; 2020-10-30)
PROC: B548ZZA Ultrasonography of Superior Vena Cava, Guidance (ICD-10-PCS; 2020-10-30)
DX: M46.46 Discitis, unspecified, lumbar region (principal); S32.040A Wedge compression fracture of fourth lumbar vertebra, initial encounter for closed fracture; E22.2 Syndrome of inappropriate secretion of antidiuretic hormone; Z20.822 Contact with and (suspected) exposure to COVID-19; D64.9 Anemia, unspecified; E11.9 Type 2 diabetes mellitus without complications; F41.9 Anxiety disorder, unspecified; I10 Essential (primary) hypertension; W19.XXXA Unspecified fall, initial encounter; E78.5 Hyperlipidemia, unspecified; E03.9 Hypothyroidism, unspecified; R29.6 Repeated falls; E78.00 Pure hypercholesterolemia, unspecified; K21.9 Gastro-esophageal reflux disease without esophagitis; Z96.653 Presence of artificial knee joint, bilateral; Z88.0 Allergy status to penicillin; Z88.5 Allergy status to narcotic agent; Z91.048 Other nonmedicinal substance allergy status; Z79.82 Long term (current) use of aspirin; Z79.84 Long term (current) use of oral hypoglycemic drugs; Z79.890 Hormone replacement therapy; Z79.899 Other long term (current) drug therapy; Z90.49 Acquired absence of other specified parts of digestive tract
CPT/HCPCS: 36415; 36416; 36569; 80048; 80053; 80202; 81001; 82607; 82746; 83540; 83550; 83930; 83935; 84300; 84443; 85025; 85046; 85652; 86140; 87040; 87635; 93005; 96365; 96367; 96375; C1751; J0360; J0692; J1644; J1815; J1885; J2270; J3370; J3490; J7050; U0003; U0005

== ENCOUNTER 2020-12-13 13:59 | Outpatient (CLI) | payer MEDICARE | END 2020-12-13 14:00 | disposition home or self-care (01) | LOC: BICRAD 13:59 | PROVIDERS: ATTEND Surgery | DX: S32.040A Wedge compression fracture of fourth lumbar vertebra, initial encounter for closed fracture (principal) | CPT/HCPCS: 72100 ==

== ENCOUNTER 2021-10-23 12:11 | Outpatient (CLI) | payer MEDICARE | END 2021-10-23 12:12 | disposition home or self-care (01) | LOC: TBSIIMAG 12:11 | PROVIDERS: ATTEND Surgery | DX: M47.26 Other spondylosis with radiculopathy, lumbar region (principal); M48.062 Spinal stenosis, lumbar region with neurogenic claudication; M43.16 Spondylolisthesis, lumbar region; M51.16 Intervertebral disc disorders with radiculopathy, lumbar region; M84.48XA Pathological fracture, other site, initial encounter for fracture | CPT/HCPCS: 72120; 72148 ==

== ENCOUNTER 2022-01-06 15:04 | Outpatient (CLI) | payer MEDICARE ==
[2022-01-06 16:55] LABS: Hemoglobin 10.5 g/dL (12.0-15.5); Mean Corpuscular HGB CONC 34.1 g/dL (32.0-36.0); Mean Corpuscular Hemoglobin 31.3 pg (27.0-33.0); Mean Corpuscular Volume 91.7 fl (81.6-98.3); Mean Platelet Volume 9.3 fl (7.4-10.4); Platelet Count 174 10x3/uL (150-450); RBC Distribution Width 12.8 % (11.5-14.5); Red Blood Cell (RBC) Count 3.36 10x6/uL (3.90-5.03)
[2022-01-06 17:15] LABS: PTT 25.8 sec (22.0-33.0); Prothrombin Time 10.4 sec (9.5-12.1)
[2022-01-06 17:20] LABS: Anion Gap 17 mmol/L (10-20); BUN (Urea Nitrogen) 24 mg/dL (9.8-20.1); Calc. Creatinine Clearance 0 mL/min (70-130); Carbon Dioxide 25 mmol/L (23-31); Chloride 92 mmol/L (98-107); Estimated GFR 25; Glucose 121 mg/dL (83-110); Sodium 129 mmol/L (136-145)
== END 2022-01-06 15:05 | disposition home or self-care (01) ==
LOC: LABBT 15:04
PROVIDERS: ATTEND Surgery
DX: Z01.818 Encounter for other preprocedural examination (principal); M48.062 Spinal stenosis, lumbar region with neurogenic claudication; M54.16 Radiculopathy, lumbar region
CPT/HCPCS: 80048; 85027; 85610; 85730; 87811; 93005; 93010

== ENCOUNTER 2022-01-09 06:05 | Inpatient (IN) | payer MEDICARE ==
[2022-01-07 14:36] VITALS: BMI 20.7
[2022-01-09] MEDS ORDERED: fentaNYL Citrate/PF 100 MCG/2 ML SYRINGE ONE (06:23)
[2022-01-09] MEDS ORDERED: HYDROmorphone 2 MG/ML VIAL ONE (06:23)
[2022-01-09] MEDS ORDERED: Thrombin 5000 UNITS/5 ML VIAL ONE ×2 (06:32→09:13)
[2022-01-09] MEDS ORDERED: Clindamycin/D5W 900 mg/50 ml Premix Bag ONE (06:39)
[2022-01-09] MEDS ORDERED: Levofloxacin 500 mg/D5W 100 ml Premix Bag ONE (06:39)
[2022-01-09] MEDS ORDERED: Midazolam HCl 2 mg/2 ml Vial ONE (07:14)
[2022-01-09] MEDS ORDERED: Dexamethasone 20 MG/5 ML VIAL ONE (07:31)
[2022-01-09] MEDS ORDERED: ePHEDrine 50 MG/ML VIAL ONE (07:31)
[2022-01-09] MEDS ORDERED: PROPOFOL 200 MG/20 ML VIAL ONE (07:31)
[2022-01-09] MEDS ORDERED: Rocuronium Bromide 10 MG/ML (10ML VIAL) ONE (07:31)
[2022-01-09] MEDS ORDERED: Succinylcholine 200 MG/10 ml SYRINGE FS ONE (07:31)
[2022-01-09] MEDS ORDERED: Phenylephrine 10 MG/ML VIAL ONE (07:31)
[2022-01-09] MEDS ORDERED: Glycopyrrolate 0.2 MG/ML 5 ML SYRINGE ONE (07:31)
[2022-01-09] MEDS ORDERED: Lidocaine 1% PF 5 ML VIAL ONE (07:31)
[2022-01-09] MEDS ORDERED: Ondansetron PF 4 MG/2 ML Vial ONE (07:31)
[2022-01-09] MEDS ORDERED: SUGAMMADEX SODIUM 200 MG/2 ML VIAL ONE (08:50)
[2022-01-09] MEDS ORDERED: Ondansetron PF 4 MG/2 ML Vial IVP PRN (09:53)
[2022-01-09] MEDS ORDERED: Acetaminophen 325 MG TAB PO PRN (09:53)
[2022-01-09] MEDS ORDERED: traMADol HCl 50 MG TAB PO PRN (09:53)
[2022-01-09] MEDS ORDERED: Fentanyl 100 MCG/2 ML VIAL SLOW IVP PRN (09:53)
[2022-01-09] MEDS ORDERED: Acetaminophen/Codeine 30-300mg Tablet PO PRN (09:53)
[2022-01-09] MEDS ORDERED: hydrALAZINE 20 MG/ML VIAL SLOW IVP PRN (10:00)
[2022-01-09] MEDS ORDERED: HYDROcodone/Acetaminophen 10/325 mg Tablet PO PRN ×2 (10:02→13:43)
[2022-01-09] MEDS ORDERED: Promethazine HCl 25 MG/ML VIAL IM/IV PRN (10:15)
[2022-01-09] MEDS ORDERED: Ondansetron HCl/PF 4 MG/2 ML Vial IVP PRN (10:15)
[2022-01-09] MEDS ORDERED: Fentanyl 100 MCG/2 ML VIAL ONE (10:19)
[2022-01-09] MEDS: Clindamycin/D5W 900 MG in Premix Bag 1 BAG IVPB SCH ×2 (12:06→18:05)
[2022-01-09] MEDS: Sodium Chloride 0.9% 1,000 ML IV SCH (12:13)
[2022-01-09] MEDS ORDERED: Dexamethasone 10 MG/ML VIAL SLOW IVP SCH (13:45)
[2022-01-09] MEDS ORDERED: Gabapentin 300 MG CAP PO SCH (14:00)
[2022-01-09] MEDS ORDERED: ALPRAZolam 0.5 MG TAB PO SCH (15:00)
[2022-01-09] MEDS: tiZANidine HCl 4 MG TAB PO PRN (15:21)
[2022-01-09] MEDS: HYDROcodone/Acetaminophen 10/325 mg Tablet PO PRN ×2 (16:22→20:59)
[2022-01-09] MEDS: Dexamethasone 4 MG TAB PO SCH ×2 (18:05→23:04)
[2022-01-09] MEDS ORDERED: Dextrose 5% in Water 1,000 ML IV PRN (19:25)
[2022-01-09] MEDS ORDERED: Dextrose 50% Abboject 50 ML SYRINGE SLOW IVP PRN (19:25)
[2022-01-09] MEDS ORDERED: HumaLOG 300 UNITS/3 ML VIAL SC PRN ×2 (19:25)
[2022-01-09] MEDS: Floranex 1 GM Packet PO SCH (20:58)
[2022-01-09] MEDS: Rosuvastatin 10 MG TAB PO SCH (21:00)
[2022-01-09] MEDS: Gabapentin 300 MG CAP PO SCH (21:00)
[2022-01-09] MEDS: ALPRAZolam 0.5 MG TAB PO PRN (23:04)
[2022-01-10] MEDS: HYDROcodone/Acetaminophen 10/325 mg Tablet PO PRN ×4 (02:21→21:02)
[2022-01-10] MEDS: Sodium Chloride 0.9% 1,000 ML IV SCH ×3 (04:05→12:52)
[2022-01-10] MEDS: Levothyroxine Sodium 75 MCG TAB PO SCH (05:27)
[2022-01-10] MEDS: Dexamethasone 4 MG TAB PO SCH ×4 (05:27→22:59)
[2022-01-10 06:09] LABS: Hemoglobin A1c 5.7 % (4.0-6.0)
[2022-01-10 06:25] LABS: ALT (SGPT) 10 U/L (8-55); AST (SGOT) 25 U/L (5-34); Albumin 3.3 g/dL (3.4-4.8); Alkaline Phosphatase 42 U/L (40-110); Anion Gap 12 mmol/L (10-20); BUN (Urea Nitrogen) 20 mg/dL (9.8-20.1); Bilirubin, Total 0.3 mg/dL (0.2-1.2); Calc. Creatinine Clearance 26 mL/min (70-130); Calcium 8.3 mg/dL (7.8-10.44); Carbon Dioxide 22 mmol/L (23-31); Chloride 92 mmol/L (98-107); Estimated GFR 37; Globulin 2.2 g/dL (2.4-3.5); Glucose 163 mg/dL (83-110); Magnesium 1.6 mg/dL (1.6-2.6); Potassium 4.8 mmol/L (3.5-5.1); Protein, Total 5.5 g/dL (5.8-8.1); Sodium 121 mmol/L (136-145)
[2022-01-10 06:27] LABS: #Basophils 0.1 thou/uL (0.0-0.2); #Lymphocytes 0.3 thou/uL (1.20-3.40); #Monocytes 0.1 thou/uL (0.11-0.59); #Neutrophils 9.7 thou/uL (1.40-6.50); %Basophils 0.5 % (0.0-1.0); %Eosinophils 0.1 % (0.0-10.0); %Lymphocytes 2.9 % (21.0-51.0); %Monocytes 1.3 % (0.0-10.0); %Neutrophils 95.3 % (42.0-75.0); Hemoglobin 8.2 g/dL (12.0-16.0); Mean Corpuscular HGB CONC 33.1 g/dL (32.0-36.0); Mean Corpuscular Hemoglobin 31.7 pg (27.0-31.0); Mean Corpuscular Volume 95.6 fL (78.0-98.0); Mean Platelet Volume 6.7 fL (7.4-10.4); Platelet Count 103 thou/uL (130-400); Platelet Morphology Comment Appears Decreased; RBC Distribution Width 11.7 % (11.5-14.5); RBC Morphology Normal; Red Blood Cell (RBC) Count 2.57 mill/uL (4.20-5.40); White Blood Cell (WBC) Count 10.2 thou/uL (4.8-10.8)
[2022-01-10] MEDS: Gabapentin 300 MG CAP PO SCH ×3 (08:44→21:03)
[2022-01-10] MEDS: metFORMIN 500 MG TAB PO SCH (08:44)
[2022-01-10] MEDS: Lisinopril 20 MG TAB PO SCH (08:44)
[2022-01-10] MEDS: Amlodipine 5 MG TAB PO SCH (08:44)
[2022-01-10] MEDS: Polyethylene Glycol 3350 17 GM Packet PO SCH (08:45)
[2022-01-10] MEDS: ALPRAZolam 0.5 MG TAB PO PRN ×3 (08:47→21:02)
[2022-01-10] MEDS: Floranex 1 GM Packet PO SCH (21:03)
[2022-01-10] MEDS: Rosuvastatin 10 MG TAB PO SCH (21:03)
[2022-01-10] MEDS ORDERED: Calcium Carbonate 500 MG ChewTAB PO PRN (21:08)
[2022-01-10] MEDS: tiZANidine HCl 4 MG TAB PO PRN (22:58)
[2022-01-11] MEDS: Sodium Chloride 0.9% 1,000 ML IV SCH ×2 (02:02→16:17)
[2022-01-11] MEDS: HYDROcodone/Acetaminophen 10/325 mg Tablet PO PRN ×4 (02:47→20:13)
[2022-01-11] MEDS: ALPRAZolam 0.5 MG TAB PO PRN ×4 (02:47→23:47)
[2022-01-11] MEDS: Levothyroxine Sodium 75 MCG TAB PO SCH (05:30)
[2022-01-11] MEDS: Dexamethasone 4 MG TAB PO SCH ×2 (05:30→11:03)
[2022-01-11] MEDS: Gabapentin 300 MG CAP PO SCH ×3 (08:35→20:12)
[2022-01-11] MEDS: Polyethylene Glycol 3350 17 GM Packet PO SCH (08:35)
[2022-01-11] MEDS: metFORMIN 500 MG TAB PO SCH (08:35)
[2022-01-11] MEDS: Lisinopril 20 MG TAB PO SCH (08:36)
[2022-01-11] MEDS: Amlodipine 5 MG TAB PO SCH (08:36)
[2022-01-11] MEDS: tiZANidine HCl 4 MG TAB PO PRN ×2 (11:03→20:11)
[2022-01-11] MEDS: Dexamethasone 1 MG TAB PO SCH ×2 (17:10→23:47)
[2022-01-11] MEDS: Floranex 1 GM Packet PO SCH (20:11)
[2022-01-11] MEDS: Rosuvastatin 10 MG TAB PO SCH (20:11)
[2022-01-12] MEDS: Levothyroxine Sodium 75 MCG TAB PO SCH (05:46)
[2022-01-12] MEDS: Dexamethasone 1 MG TAB PO SCH ×2 (05:46→11:43)
[2022-01-12] MEDS: HYDROcodone/Acetaminophen 10/325 mg Tablet PO PRN ×2 (05:46→14:47)
[2022-01-12 06:09] LABS: Anion Gap 13 mmol/L (10-20); BUN (Urea Nitrogen) 32 mg/dL (9.8-20.1); Calc. Creatinine Clearance 29 mL/min (70-130); Calcium 8.7 mg/dL (7.8-10.44); Carbon Dioxide 23 mmol/L (23-31); Estimated GFR 42; Glucose 180 mg/dL (83-110); Potassium 4.9 mmol/L (3.5-5.1); Sodium 125 mmol/L (136-145)
[2022-01-12 06:10] LABS: #Lymphocytes 0.4 thou/uL (1.20-3.40); #Monocytes 0.2 thou/uL (0.11-0.59); #Neutrophils 8.9 thou/uL (1.40-6.50); %Lymphocytes 4.3 % (21.0-51.0); %Monocytes 2.5 % (0.0-10.0); %Neutrophils 93.1 % (42.0-75.0); Elliptocytes SLIGHT = 2-5 cells (100X) (0-1/hpf); Hemoglobin 8.4 g/dL (12.0-16.0); MDiff Complete? YES; Mean Corpuscular HGB CONC 32.7 g/dL (32.0-36.0); Mean Corpuscular Hemoglobin 31.3 pg (27.0-31.0); Mean Corpuscular Volume 95.9 fL (78.0-98.0); Mean Platelet Volume 7.3 fL (7.4-10.4); Platelet Count 96 thou/uL (130-400); Platelet Morphology Comment Appears Decreased; RBC Distribution Width 12.3 % (11.5-14.5); Red Blood Cell (RBC) Count 2.67 mill/uL (4.20-5.40); White Blood Cell (WBC) Count 9.5 thou/uL (4.8-10.8)
[2022-01-12 06:15] LABS: Chloride 94 mmol/L (98-107)
[2022-01-12] MEDS: Sodium Chloride 0.9% 1,000 ML IV SCH (06:55)
[2022-01-12] MEDS: Lisinopril 20 MG TAB PO SCH (09:08)
[2022-01-12] MEDS: Amlodipine 5 MG TAB PO SCH (09:08)
[2022-01-12] MEDS: metFORMIN 500 MG TAB PO SCH (09:08)
[2022-01-12] MEDS: Gabapentin 300 MG CAP PO SCH ×2 (09:08→14:47)
[2022-01-12] MEDS: Polyethylene Glycol 3350 17 GM Packet PO SCH (09:09)
[2022-01-12] MEDS: ALPRAZolam 0.5 MG TAB PO PRN (09:13)
[2022-01-12] MEDS: tiZANidine HCl 4 MG TAB PO PRN (11:43)
[2022-01-12 16:26] VITALS: BP 122/65; TEMP 97.6
[2022-01-13] MEDS ORDERED: Dexamethasone 1 MG TAB PO SCH (18:00)
[2022-01-15] MEDS ORDERED: Dexamethasone 1 MG TAB PO SCH (18:00)
== END 2022-01-12 16:10 | DRG 519 ==
LOC: SDC 06:05 → SURG B 09:36 → OBSVTOIN 01-10 15:03
PROVIDERS: ADMIT Surgery; ATTEND Surgery
PROC: 00QT0ZZ Repair Spinal Meninges, Open Approach (ICD-10-PCS; principal; 2022-01-10)
PROC: 01NB0ZZ Release Lumbar Nerve, Open Approach (ICD-10-PCS; 2022-01-10)
DX: M48.062 Spinal stenosis, lumbar region with neurogenic claudication (principal); M46.26 Osteomyelitis of vertebra, lumbar region; E87.1 Hypo-osmolality and hyponatremia; N17.9 Acute kidney failure, unspecified; G96.09 Other spinal cerebrospinal fluid leak; M54.16 Radiculopathy, lumbar region; Z20.822 Contact with and (suspected) exposure to COVID-19; I10 Essential (primary) hypertension; E78.5 Hyperlipidemia, unspecified; E03.9 Hypothyroidism, unspecified; F41.9 Anxiety disorder, unspecified; E11.69 Type 2 diabetes mellitus with other specified complication; R20.8 Other disturbances of skin sensation; Z88.0 Allergy status to penicillin; Z88.5 Allergy status to narcotic agent
CPT/HCPCS: 36415; 36416; 76000; 80048; 80053; 83036; 83735; 85025; 93970; 96374; 96375; 96376; C1776; G0378; J1100; J1170; J1956; J2250; J2370; J2405; J2704; J2710; J3010; J3370; J3490; J7050; J8540

== ENCOUNTER 2022-01-15 19:13 | Inpatient (IN) | payer MEDICARE ==
[2022-01-15] MEDS ORDERED: HYDROcodone/Acetaminophen 10/325 mg Tablet PO PRN (20:06)
[2022-01-15] MEDS ORDERED: Acetaminophen/Codeine 30-300mg Tablet PO PRN (20:06)
[2022-01-15] MEDS ORDERED: HYDROcodone/Acetaminophen 7.5/325 mg Tablet PO PRN (20:06)
[2022-01-15] MEDS ORDERED: Clindamycin/D5W 900 MG in Premix Bag 1 BAG IVPB SCH (20:15)
[2022-01-15] MEDS ORDERED: Dexamethasone 4 MG TAB PO SCH (22:00)
[2022-01-15] MEDS: Sodium Chloride 0.9% 1,000 ML IV SCH (22:02)
[2022-01-15 22:11] VITALS: BMI 21.3
[2022-01-16 00:51] LABS: SARS-CoV-2 NAA Rapid Test Not Detected (NotDetected)
[2022-01-16 06:09] LABS: #Basophils 0.1 thou/uL (0.0-0.2); #Lymphocytes 0.5 thou/uL (1.20-3.40); #Monocytes 0.5 thou/uL (0.11-0.59); #Neutrophils 8.2 thou/uL (1.40-6.50); %Basophils 0.8 % (0.0-1.0); %Eosinophils 0.1 % (0.0-10.0); %Lymphocytes 5.3 % (21.0-51.0); %Monocytes 5.1 % (0.0-10.0); %Neutrophils 88.7 % (42.0-75.0); Hemoglobin 10.4 g/dL (12.0-16.0); Mean Corpuscular HGB CONC 33.4 g/dL (32.0-36.0); Mean Platelet Volume 6.9 fL (7.4-10.4); Platelet Count 167 thou/uL (130-400); RBC Distribution Width 12.3 % (11.5-14.5); Red Blood Cell (RBC) Count 3.26 mill/uL (4.20-5.40); White Blood Cell (WBC) Count 9.2 thou/uL (4.8-10.8)
[2022-01-16 06:14] LABS: INR-International Normal Ratio 1.1; PTT 23.6 sec (22.9-36.1); Prothrombin Time 13.8 sec (12.0-14.7)
[2022-01-16 06:22] LABS: Anion Gap 16 mmol/L (10-20); BUN (Urea Nitrogen) 50 mg/dL (9.8-20.1); Calc. Creatinine Clearance 31 mL/min (70-130); Calcium 8.5 mg/dL (7.8-10.44); Carbon Dioxide 23 mmol/L (23-31); Chloride 93 mmol/L (98-107); Estimated GFR 44; Glucose 169 mg/dL (83-110); Sodium 127 mmol/L (136-145)
[2022-01-16] MEDS: Dexamethasone 4 MG TAB PO SCH ×4 (06:26→23:47)
[2022-01-16] MEDS ORDERED: Thrombin 5000 UNITS/5 ML VIAL ONE (06:31)
[2022-01-16] MEDS ORDERED: fentaNYL Citrate/PF 100 MCG/2 ML SYRINGE ONE ×2 (06:57→13:31)
[2022-01-16] MEDS ORDERED: Propofol 500 MG/50 ML VIAL ONE (06:57)
[2022-01-16] MEDS ORDERED: hydrALAZINE 20 MG/ML VIAL SLOW IVP PRN (07:10)
[2022-01-16] MEDS ORDERED: Levofloxacin 500 mg/D5W 100 ml Premix Bag ONE ×2 (07:25→13:24)
[2022-01-16] MEDS ORDERED: Clindamycin/D5W 900 mg/50 ml Premix Bag ONE ×2 (07:32→13:24)
[2022-01-16] MEDS ORDERED: PROPOFOL 200 MG/20 ML VIAL ONE ×2 (07:46→13:40)
[2022-01-16] MEDS ORDERED: Rocuronium Bromide 10 MG/ML (10ML VIAL) ONE ×2 (07:46→13:40)
[2022-01-16] MEDS ORDERED: Esmolol 100 MG/10 ML VIAL ONE (07:46)
[2022-01-16] MEDS ORDERED: Lidocaine 1% PF 5 ML VIAL ONE (07:46)
[2022-01-16] MEDS ORDERED: ePHEDrine 50 MG/ML VIAL ONE (07:46)
[2022-01-16] MEDS ORDERED: Glycopyrrolate 0.2 MG/ML 5 ML SYRINGE ONE (07:46)
[2022-01-16] MEDS ORDERED: Ondansetron PF 4 MG/2 ML Vial ONE (07:46)
[2022-01-16] MEDS ORDERED: Dexamethasone 20 MG/5 ML VIAL ONE (07:46)
[2022-01-16] MEDS ORDERED: Amlodipine 5 MG TAB PO SCH (09:00)
[2022-01-16] MEDS ORDERED: Fentanyl 100 MCG/2 ML VIAL SLOW IVP PRN (09:36)
[2022-01-16] MEDS ORDERED: Acetaminophen/Codeine 30-300mg Tablet PO PRN (09:36)
[2022-01-16] MEDS ORDERED: tiZANidine HCl 4 MG TAB PO PRN (09:36)
[2022-01-16] MEDS ORDERED: HYDROmorphone 2 MG/ML VIAL ONE ×2 (09:38→15:09)
[2022-01-16] MEDS ORDERED: Promethazine HCl 25 MG/ML VIAL IVPB PRN ×2 (09:54→15:10)
[2022-01-16] MEDS ORDERED: Meperidine HCl/PF 25 MG/ML VIAL SLOW IVP PRN ×2 (09:54→15:10)
[2022-01-16] MEDS ORDERED: HYDROmorphone 2 MG/ML VIAL SLOW IVP PRN ×2 (09:54→15:10)
[2022-01-16] MEDS ORDERED: Fentanyl 100 MCG/2 ML VIAL ONE ×3 (10:17→16:12)
[2022-01-16] MEDS ORDERED: HYDROmorphone 0.5 MG/0.5 ML SYRINGE ONE ×4 (10:28→11:05)
[2022-01-16] MEDS ORDERED: Gabapentin 300 MG CAP ONE (11:02)
[2022-01-16] MEDS ORDERED: Gabapentin 300 MG CAP PO SCH (11:15)
[2022-01-16] MEDS ORDERED: PROPOFOL 20 ML ONE (13:51)
[2022-01-16] MEDS ORDERED: SUGAMMADEX SODIUM 200 MG/2 ML VIAL ONE (14:22)
[2022-01-16] MEDS: Clindamycin/D5W 900 MG in Premix Bag 1 BAG IVPB SCH ×2 (17:01→21:23)
[2022-01-16 19:20] LABS: EPI 70 sec (67-192); Platelet Count 192 thou/uL (130-400)
[2022-01-16] MEDS: Sodium Chloride 0.9% 1,000 ML IV SCH ×2 (20:15→23:47)
[2022-01-16] MEDS: ALPRAZolam 0.5 MG TAB PO SCH ×2 (20:16→20:35)
[2022-01-16] MEDS: Floranex 1 GM Packet PO SCH (20:35)
[2022-01-16] MEDS: Gabapentin 300 MG CAP PO SCH (20:35)
[2022-01-16] MEDS ORDERED: LACTINEX 1 TAB PO SCH (21:00)
[2022-01-17] MEDS: Dexamethasone 4 MG TAB PO SCH ×4 (04:47→23:23)
[2022-01-17] MEDS: Levothyroxine Sodium 75 MCG TAB PO SCH (04:48)
[2022-01-17] MEDS: HYDROcodone/Acetaminophen 10/325 mg Tablet PO PRN ×3 (04:48→22:07)
[2022-01-17] MEDS: Clindamycin/D5W 900 MG in Premix Bag 1 BAG IVPB SCH ×3 (05:42→22:06)
[2022-01-17 05:50] LABS: #Lymphocytes 0.4 thou/uL (1.20-3.40); #Monocytes 0.7 thou/uL (0.11-0.59); #Neutrophils 8.8 thou/uL (1.40-6.50); %Eosinophils 0.2 % (0.0-10.0); %Lymphocytes 3.8 % (21.0-51.0); %Monocytes 7.3 % (0.0-10.0); %Neutrophils 88.6 % (42.0-75.0); Hemoglobin 9.3 g/dL (12.0-16.0); Mean Corpuscular HGB CONC 32.9 g/dL (32.0-36.0); Mean Corpuscular Hemoglobin 31.6 pg (27.0-31.0); Mean Corpuscular Volume 95.9 fL (78.0-98.0); Mean Platelet Volume 6.6 fL (7.4-10.4); Platelet Count 159 thou/uL (130-400); RBC Distribution Width 12.3 % (11.5-14.5); Red Blood Cell (RBC) Count 2.95 mill/uL (4.20-5.40); White Blood Cell (WBC) Count 9.9 thou/uL (4.8-10.8)
[2022-01-17 05:58] LABS: INR-International Normal Ratio 1.2; PTT 24.1 sec (22.9-36.1); Prothrombin Time 14.9 sec (12.0-14.7)
[2022-01-17 06:07] LABS: ALT (SGPT) 11 U/L (8-55); AST (SGOT) 11 U/L (5-34); Albumin 3.2 g/dL (3.4-4.8); Alkaline Phosphatase 36 U/L (40-110); Anion Gap 14 mmol/L (10-20); BUN (Urea Nitrogen) 43 mg/dL (9.8-20.1); Bilirubin, Total 0.5 mg/dL (0.2-1.2); CRP (Inflammatory) Less than 0.50 mg/dL (= or < 0.5); Calc. Creatinine Clearance 31 mL/min (70-130); Carbon Dioxide 22 mmol/L (23-31); Chloride 93 mmol/L (98-107); Estimated GFR 44; Globulin 1.9 g/dL (2.4-3.5); Glucose 142 mg/dL (83-110); Potassium 5.4 mmol/L (3.5-5.1); Protein, Total 5.1 g/dL (5.8-8.1); Sodium 124 mmol/L (136-145)
[2022-01-17] MEDS ORDERED: Non-Formulary Item 1 EACH (Benazepril Hcl [Benazepril Hcl] 20 MG Tablet) PO SCH (09:00)
[2022-01-17] MEDS: ALPRAZolam 0.5 MG TAB PO SCH ×3 (09:14→22:07)
[2022-01-17] MEDS: Amlodipine 5 MG TAB PO SCH (09:15)
[2022-01-17] MEDS: Gabapentin 300 MG CAP PO SCH ×3 (09:16→22:08)
[2022-01-17] MEDS: metFORMIN 500 MG TAB PO SCH (09:17)
[2022-01-17] MEDS: Lisinopril 10 MG TAB PO SCH (09:17)
[2022-01-17] MEDS: Rosuvastatin 20 MG TAB PO SCH (09:18)
[2022-01-17] MEDS: Polyethylene Glycol 3350 17 GM Packet PO SCH (09:19)
[2022-01-17] MEDS: Sodium Chloride 0.9% 1,000 ML IV SCH (12:55)
[2022-01-17] MEDS: Calcium Carbonate 500 MG ChewTAB PO PRN (15:25)
[2022-01-17 16:44] LABS: ANA Symphony (Qualitative) Negative (Negative); ANA Symphony (Quantitative) 0.2 Ratio (< 0.7 Negative); CCP IgG Antibody 1.5 EliAU/mL (<7 Negative); Rheumatoid Factor IgA Antibody 2.4 IU/mL (<14 Negative); Rheumatoid Factor IgM Antibody 1.4 IU/mL (<3.5 Negative); dsDNA IgG Antibody Less than 0.5 IU/mL (<10 Negative)
[2022-01-17] MEDS: Floranex 1 GM Packet PO SCH (22:06)
[2022-01-18] MEDS: Sodium Chloride 0.9% 1,000 ML IV SCH ×2 (02:50→08:36)
[2022-01-18] MEDS: Clindamycin/D5W 900 MG in Premix Bag 1 BAG IVPB SCH ×2 (05:59→14:26)
[2022-01-18] MEDS: Levothyroxine Sodium 75 MCG TAB PO SCH (05:59)
[2022-01-18] MEDS: Dexamethasone 4 MG TAB PO SCH ×4 (06:00→23:33)
[2022-01-18] MEDS: HYDROcodone/Acetaminophen 10/325 mg Tablet PO PRN ×4 (06:01→23:36)
[2022-01-18] MEDS: Polyethylene Glycol 3350 17 GM Packet PO SCH (08:29)
[2022-01-18] MEDS: metFORMIN 500 MG TAB PO SCH (08:29)
[2022-01-18] MEDS: Rosuvastatin 20 MG TAB PO SCH (08:30)
[2022-01-18] MEDS: Amlodipine 5 MG TAB PO SCH (08:30)
[2022-01-18] MEDS: ALPRAZolam 0.5 MG TAB PO SCH ×3 (08:31→21:16)
[2022-01-18] MEDS: Lisinopril 10 MG TAB PO SCH (08:31)
[2022-01-18] MEDS: Gabapentin 300 MG CAP PO SCH ×3 (08:31→21:15)
[2022-01-18] MEDS ORDERED: Lidocaine 1% w/Epinephrine 1:100K 20 ML VIAL IJ SCH (09:15)
[2022-01-18] MEDS ORDERED: Lidocaine 1% w/Epinephrine 1:200K 30 ML VIAL FS SCH (10:30)
[2022-01-18] MEDS ORDERED: Lidocaine 1% (PF) 30 ML VIAL ONE (13:00)
[2022-01-18] MEDS: Calcium Carbonate 500 MG ChewTAB PO PRN (14:32)
[2022-01-18 14:33] LABS: #Lymphocytes 0.4 thou/uL (1.20-3.40); #Monocytes 0.4 thou/uL (0.11-0.59); #Neutrophils 9.2 thou/uL (1.40-6.50); %Eosinophils 0.3 % (0.0-10.0); %Lymphocytes 4.3 % (21.0-51.0); %Monocytes 4.1 % (0.0-10.0); %Neutrophils 91.3 % (42.0-75.0); Hemoglobin 9.5 g/dL (12.0-16.0); Mean Corpuscular HGB CONC 32.8 g/dL (32.0-36.0); Mean Corpuscular Hemoglobin 31.7 pg (27.0-31.0); Mean Corpuscular Volume 96.7 fL (78.0-98.0); Mean Platelet Volume 6.5 fL (7.4-10.4); Platelet Count 159 thou/uL (130-400); RBC Distribution Width 12.4 % (11.5-14.5); White Blood Cell (WBC) Count 10.1 thou/uL (4.8-10.8)
[2022-01-18 14:52] LABS: Anion Gap 16 mmol/L (10-20); BUN (Urea Nitrogen) 41 mg/dL (9.8-20.1); Calc. Creatinine Clearance 33 mL/min (70-130); Calcium 7.8 mg/dL (7.8-10.44); Carbon Dioxide 21 mmol/L (23-31); Chloride 94 mmol/L (98-107); Estimated GFR 47; Glucose 96 mg/dL (83-110); Potassium 5.6 mmol/L (3.5-5.1); Sodium 125 mmol/L (136-145)
[2022-01-18 20:22] LABS: Anion Gap 15 mmol/L (10-20); BUN (Urea Nitrogen) 40 mg/dL (9.8-20.1); Calc. Creatinine Clearance 34 mL/min (70-130); Calcium 7.5 mg/dL (7.8-10.44); Carbon Dioxide 22 mmol/L (23-31); Chloride 98 mmol/L (98-107); Estimated GFR 49; Glucose 108 mg/dL (83-110); Potassium 4.8 mmol/L (3.5-5.1); Sodium 130 mmol/L (136-145)
[2022-01-18] MEDS: Floranex 1 GM Packet PO SCH (21:14)
[2022-01-19] MEDS: Levothyroxine Sodium 75 MCG TAB PO SCH (05:24)
[2022-01-19] MEDS: Dexamethasone 4 MG TAB PO SCH (05:24)
[2022-01-19] MEDS: HYDROcodone/Acetaminophen 10/325 mg Tablet PO PRN ×4 (05:27→22:14)
[2022-01-19 06:31] LABS: Homocysteine 10.45 umol/L (5.08-15.39); Thyroid Stimulating Hormone 0.0704 uIU/mL (0.35-4.94)
[2022-01-19 07:43] LABS: D-Dimer Test 1.77 *mcg/mL (0.27-0.43); INR-International Normal Ratio 1.1; PTT 25.2 sec (22.9-36.1); Prothrombin Time 14.5 sec (12.0-14.7)
[2022-01-19] MEDS: Amlodipine 5 MG TAB PO SCH (08:41)
[2022-01-19] MEDS: Gabapentin 300 MG CAP PO SCH ×3 (08:41→20:06)
[2022-01-19] MEDS: Polyethylene Glycol 3350 17 GM Packet PO SCH (08:42)
[2022-01-19] MEDS: ALPRAZolam 0.5 MG TAB PO SCH ×3 (08:42→20:07)
[2022-01-19] MEDS: Rosuvastatin 20 MG TAB PO SCH (08:42)
[2022-01-19] MEDS: Sodium Chloride 0.9% 1,000 ML IV SCH (09:15)
[2022-01-19] MEDS: Dexamethasone 1 MG TAB PO SCH ×3 (11:26→22:59)
[2022-01-19 11:31] LABS: Anion Gap 14 mmol/L (10-20); BUN (Urea Nitrogen) 38 mg/dL (9.8-20.1); Calc. Creatinine Clearance 35 mL/min (70-130); Calcium 7.5 mg/dL (7.8-10.44); Carbon Dioxide 21 mmol/L (23-31); Chloride 99 mmol/L (98-107); Estimated GFR 50; Glucose 197 mg/dL (83-110); Potassium 4.5 mmol/L (3.5-5.1); Sodium 129 mmol/L (136-145)
[2022-01-19 16:04] LABS: HEX PHOS LA Tube 1 35.6 SEC; HEX PHOS LA Tube 2 34.1 SEC; Hexagonal Phospholipid Neut 1.5 SEC (0-8.0); Protein C Activity 170 % (78-152)
[2022-01-19 16:38] LABS: Alb/Glob Ratio 1.5 (0.7-1.7); Albumin 2.9 g/dL (2.9-4.4); Alpha-1-Globulin 0.2 g/dL (0.0-0.4); Alpha-2-Globulin 0.7 g/dL (0.4-1.0); Beta-Globulin 0.6 g/dL (0.7-1.3); Gamma-Globulin 0.4 g/dL (0.4-1.8); IgA - Total IgA (Sendout) 104 mg/dL (64-422); Immunoglobulin - G (Sendout) 465 mg/dL (586-1602); Immunoglobulin - M (Sendout) 84 mg/dL (26-217); M-Spike Not Observed g/dL (Not Observed)
[2022-01-19] MEDS: Floranex 1 GM Packet PO SCH (20:05)
[2022-01-20] MEDS: HYDROcodone/Acetaminophen 10/325 mg Tablet PO PRN ×5 (00:24→21:43)
[2022-01-20 05:03] LABS: Anion Gap 13 mmol/L (10-20); BUN (Urea Nitrogen) 40 mg/dL (9.8-20.1); Calc. Creatinine Clearance 34 mL/min (70-130); Calcium 7.6 mg/dL (7.8-10.44); Carbon Dioxide 20 mmol/L (23-31); Chloride 99 mmol/L (98-107); Estimated GFR 50; Glucose 149 mg/dL (83-110); Iron 84 ug/dL (50-170); Iron 85 ug/dL (50-170); Iron Binding Capacity, Total 220 mcg/dL (265-497); Potassium 4.5 mmol/L (3.5-5.1); Sodium 127 mmol/L (136-145)
[2022-01-20 05:21] LABS: Free T4 (Free Thyroxine) 0.93 ng/dL (0.70-1.48)
[2022-01-20] MEDS: Sodium Chloride 0.9% 1,000 ML IV SCH (05:35)
[2022-01-20] MEDS: Dexamethasone 1 MG TAB PO SCH ×4 (05:35→23:17)
[2022-01-20] MEDS: Levothyroxine Sodium 75 MCG TAB PO SCH (06:15)
[2022-01-20] MEDS: ALPRAZolam 0.5 MG TAB PO SCH ×3 (08:01→21:42)
[2022-01-20] MEDS: Rosuvastatin 20 MG TAB PO SCH (08:01)
[2022-01-20] MEDS: Amlodipine 5 MG TAB PO SCH ×2 (08:02→21:42)
[2022-01-20] MEDS: Polyethylene Glycol 3350 17 GM Packet PO SCH (08:02)
[2022-01-20] MEDS: Gabapentin 300 MG CAP PO SCH ×3 (08:02→21:43)
[2022-01-20] MEDS ORDERED: Sodium Chloride 1 GM TAB PO SCH (16:45)
[2022-01-20] MEDS: Sodium Chloride 1 GM TAB PO SCH ×2 (21:28→21:43)
[2022-01-20] MEDS: Floranex 1 GM Packet PO SCH (21:42)
[2022-01-21] MEDS: HYDROcodone/Acetaminophen 10/325 mg Tablet PO PRN ×2 (03:40→09:25)
[2022-01-21] MEDS: Dexamethasone 1 MG TAB PO SCH (05:00)
[2022-01-21] MEDS: Levothyroxine Sodium 75 MCG TAB PO SCH (05:00)
[2022-01-21 06:50] LABS: Anion Gap 12 mmol/L (10-20); BUN (Urea Nitrogen) 36 mg/dL (9.8-20.1); Calc. Creatinine Clearance 34 mL/min (70-130); Calcium 7.9 mg/dL (7.8-10.44); Carbon Dioxide 21 mmol/L (23-31); Chloride 100 mmol/L (98-107); Estimated GFR 49; Glucose 165 mg/dL (83-110); Potassium 4.7 mmol/L (3.5-5.1); Sodium 128 mmol/L (136-145)
[2022-01-21] MEDS: Amlodipine 5 MG TAB PO SCH (09:26)
[2022-01-21] MEDS: ALPRAZolam 0.5 MG TAB PO SCH (09:27)
[2022-01-21] MEDS: Gabapentin 300 MG CAP PO SCH (09:27)
[2022-01-21] MEDS: Rosuvastatin 20 MG TAB PO SCH (09:27)
[2022-01-21] MEDS: Sodium Chloride 1 GM TAB PO SCH (09:28)
[2022-01-21] MEDS: Polyethylene Glycol 3350 17 GM Packet PO SCH (09:28)
[2022-01-21] MEDS ORDERED: traMADol HCl 50 MG TAB PO PRN (09:42)
[2022-01-21 11:55] VITALS: BP 169/73; TEMP 98.4
[2022-01-21] MEDS ORDERED: Dexamethasone 1 MG TAB PO SCH (12:00)
[2022-01-22 12:11] LABS: Cardiolipin IgA Ab 1.4 APL-U/mL (<14 Negative); Cardiolipin IgG Ab 0.6 GPL-U/mL (<10 Negative); Cardiolipin IgM Ab 6.1 MPL-U/mL (<10 Negative); EliA APS New Method **** NEW METHOD ****
[2022-01-23] MEDS ORDERED: Dexamethasone 1 MG TAB PO SCH (12:00)
[2022-01-23 19:12] LABS: Activated Protein C Resistance 2.6 ratio (.)
== END 2022-01-21 14:40 | DRG 907 ==
LOC: T4-A 19:50 → SURG A 01-16 16:41
PROVIDERS: ADMIT Surgery; ATTEND Internal Medicine
PROC: 00CU0ZZ Extirpation of Matter from Spinal Canal, Open Approach (ICD-10-PCS; principal; 2022-01-16)
DX: M96.840 Postprocedural hematoma of a musculoskeletal structure following a musculoskeletal system procedure (principal); G95.19 Other vascular myelopathies; E22.2 Syndrome of inappropriate secretion of antidiuretic hormone; G83.4 Cauda equina syndrome; N17.9 Acute kidney failure, unspecified; G82.20 Paraplegia, unspecified; Z20.822 Contact with and (suspected) exposure to COVID-19; E78.5 Hyperlipidemia, unspecified; E03.9 Hypothyroidism, unspecified; M48.062 Spinal stenosis, lumbar region with neurogenic claudication; D69.6 Thrombocytopenia, unspecified; F41.9 Anxiety disorder, unspecified; G89.29 Other chronic pain; M54.9 Dorsalgia, unspecified; Z96.653 Presence of artificial knee joint, bilateral; N18.30 Chronic kidney disease, stage 3 unspecified; I12.9 Hypertensive chronic kidney disease with stage 1 through stage 4 chronic kidney disease, or unspecified chronic kidney disease; E11.22 Type 2 diabetes mellitus with diabetic chronic kidney disease; E87.5 Hyperkalemia; D63.1 Anemia in chronic kidney disease; Y84.8 Other medical procedures as the cause of abnormal reaction of the patient, or of later complication, without mention of misadventure at the time of the procedure; Z79.899 Other long term (current) drug therapy; Z79.84 Long term (current) use of oral hypoglycemic drugs; Z79.890 Hormone replacement therapy; Z79.891 Long term (current) use of opiate analgesic; Z91.048 Other nonmedicinal substance allergy status; Z88.5 Allergy status to narcotic agent; Z88.0 Allergy status to penicillin; Z90.49 Acquired absence of other specified parts of digestive tract
CPT/HCPCS: 36415; 36416; 72148; 80048; 80053; 82180; 82728; 83090; 83520; 83540; 83550; 83930; 83935; 84134; 84155; 84165; 84300; 84439; 84443; 84481; 85025; 85060; 85240; 85245; 85246; 85300; 85303; 85305; 85307; 85379; 85576; 85598; 85610; 85652; 85730; 86038; 86140; 86147; 86200; 86225; 86334; 93970; C1776; J0360; J1100; J1170; J1956; J2001; J2405; J2704; J2710; J3010; J3370; J3490; J7050; J8540; U0002

== ENCOUNTER 2022-03-08 11:21 | Emergency (ER) | payer MEDICARE ==
[2022-03-08 12:35] LABS: #Lymphocytes 1.1 thou/uL (1.20-3.40); #Monocytes 0.4 thou/uL (0.11-0.59); #Neutrophils 3.4 thou/uL (1.40-6.50); %Basophils 0.3 % (0.0-1.0); %Eosinophils 0.5 % (0.0-10.0); %Lymphocytes 21.9 % (21.0-51.0); %Monocytes 7.6 % (0.0-10.0); %Neutrophils 69.7 % (42.0-75.0); Hemoglobin 8.6 g/dL (12.0-16.0); Mean Corpuscular Hemoglobin 31.7 pg (27.0-31.0); Mean Corpuscular Volume 96.2 fL (78.0-98.0); Mean Platelet Volume 6.3 fL (7.4-10.4); Platelet Count 184 thou/uL (130-400); RBC Distribution Width 14.2 % (11.5-14.5); Red Blood Cell (RBC) Count 2.72 mill/uL (4.20-5.40); White Blood Cell (WBC) Count 4.9 thou/uL (4.8-10.8)
[2022-03-08 12:44] LABS: Prothrombin Time 13.7 sec (12.0-14.7)
[2022-03-08 12:45] LABS: PTT 39.3 sec (22.9-36.1)
[2022-03-08 12:49] LABS: ALT (SGPT) 12 U/L (8-55); AST (SGOT) 17 U/L (5-34); Albumin 3.7 g/dL (3.4-4.8); Alkaline Phosphatase 68 U/L (40-110); Anion Gap 16 mmol/L (10-20); BUN (Urea Nitrogen) 21 mg/dL (9.8-20.1); Bilirubin, Total 0.6 mg/dL (0.2-1.2); Calc. Creatinine Clearance 0 mL/min (70-130); Calcium 9.4 mg/dL (7.8-10.44); Carbon Dioxide 25 mmol/L (23-31); Chloride 98 mmol/L (98-107); Estimated GFR 38; Globulin 2.9 g/dL (2.4-3.5); Glucose 117 mg/dL (83-110); Potassium 4.9 mmol/L (3.5-5.1); Protein, Total 6.6 g/dL (5.8-8.1); Sodium 134 mmol/L (136-145)
== END 2022-03-08 13:49 | disposition home or self-care (01) ==
LOC: ERS 11:21
DX: M79.89 Other specified soft tissue disorders (principal); I10 Essential (primary) hypertension; E78.00 Pure hypercholesterolemia, unspecified; E03.9 Hypothyroidism, unspecified; Z79.84 Long term (current) use of oral hypoglycemic drugs; Z79.899 Other long term (current) drug therapy
CPT/HCPCS: 36415; 80053; 83880; 85025; 85610; 85730